=== PATIENT | male | born 1985 | race Hispanic/Latino ===

== ENCOUNTER 2017-06-20 16:34 | Emergency (ER) | payer BC ==
[2017-06-20 16:45] VITALS: BP 116/68; PULSE 107; RESP 19; TEMP 98; O2SAT 96
--- NOTE | 2017-06-20 16:59 | ED PDOC ---
Upper Extremity Pain/Injury Time Seen by Provider: 06/20/17 16:49 Chief Complaint (Nursing): Upper Extremity Problem/Injury Chief Complaint (Provider): Upper Extremity Problem/Injury History Per: Patient History/Exam Limitations: no limitations Onset/Duration Of Symptoms: Sudden Onset (x1) Current Symptoms Are (Timing): Still Present Additional Complaint(s): 32 year old male with medical history of cystic fibrosis, presents to the emergency department with a complaint of right forearm swelling today. Patient had a port-a-cath inserted to right upper chest on 06/10/17 and concerned for blood clots. Denied any pain to right arm. PMD: none provided Past Medical History Reviewed: Historical Data, Nursing Documentation, Vital Signs Vital Signs: Last Vital Signs Temp 98.0 F 06/20/17 16:40 Pulse 107 H 06/20/17 16:40 Resp 19 06/20/17 16:40 BP 116/68 06/20/17 16:40 Pulse Ox 96 06/20/17 16:40 - Medical History PMH: Denies: No Chronic Diseases Other PMH: cystic fibrosis - Surgical History Surgical History: Denies: No Surg Hx - Family History Family History: States: Unknown Family Hx - Social History Current smoker - smoking cessation education provided: No Alcohol: None Drugs: Denies - Allergies Allergies/Adverse Reactions: Allergies Allergy/AdvReac Type Severity Reaction Status Date / Time sulfamethoxazole Allergy ANAPHYLAXIS Verified 06/20/17 16:40 [From Bactrim] trimethoprim [From Bactrim] Allergy ANAPHYLAXIS Verified 06/20/17 16:40 Review of Systems ROS Statement: Except As Marked, All Systems Reviewed And Found Negative Musculoskeletal: Positive for: Other (right forearm swelling). Negative for: Arm Pain (right-sided) Physical Exam - Reviewed Nursing Documentation Reviewed: Yes Vital Signs Reviewed: Yes - Physical Exam Appears: Positive for: Non-toxic, No Acute Distress Extremity: Positive for: Normal ROM (left arm and wrist), Swelling (right forearm). Negative for: Tenderness (right arm or wrist), Deformity Neurologic/Psych: Positive for: Alert (x3), Oriented - ECG O2 Sat by Pulse Oximetry: 96 (RA) Pulse Ox Interpretation: Normal Medical Decision Making Medical Decision Making: Initial Impression: Right forearm swelling Initial Plan: * US duplex upper extremity Time: 1854 US Upper Extremity FINDINGS: Deep veins: Unremarkable. No DVT in the internal jugular, subclavian, axillary, or brachial veins. The veins demonstrate normal color flow, are normally compressible, with normal phasic flow and/or augmentation response. Superficial veins: Unremarkable. No thrombus in the visualized basilic and cephalic veins. Soft tissues: No acute findings. IMPRESSION: There is no DVT Scribe Attestation: Documented by Norma Bell, acting as a scribe for Yady Salas PA-C. Provider Scribe Attestation: All medical record entries made by the Scribe were at my direction and personally dictated by me. I have reviewed the chart and agree that the record accurately reflects my personal performance of the history, physical exam, medical decision making, and the department course for this patient. I have also personally directed, reviewed, and agree with the discharge instructions and disposition. Disposition - Clinical Impression Clinical Impression: Edema of right forearm - Disposition Referrals: Provider CHINO, [Primary Care Provider] - Disposition: Routine/Home Disposition Time: 18:50 Condition: STABLE Instructions: Swelling Forms: [employer] ([place] Citizen)
--- NOTE | 2017-06-20 20:11 | US ---
PROCEDURE: On venous Doppler exam dated 06/20/2017. HISTORY: Swelling COMPARISON: No prior TECHNIQUE: Study available for comparison duplex interrogation of the deep veins of the right upper extremity performed in standard fashion. FINDINGS: The visualized deep veins of the right upper extremity including the right internal jugular vein, subclavian, axillary, brachial basilic, cephalic ulnar and radial veins are patent without evidence of DVT. IMPRESSION: No evidence of DVT.
--- NOTE | 2017-06-21 08:04 | RAD ---
HISTORY: port-a-cath, right chest x 2 weeks COMPARISON: No prior. TECHNIQUE: Chest PA and lateral FINDINGS: Right-sided MediPort in position. LUNGS: Advanced pulmonary fibrosis is appreciate including extensive emphysematous change. No prominent alveolar disease is appreciated on acute bases though it is difficult to evaluate due lack comparison. Underlying infiltrate at the right apex and right perihilar region is not likely but difficult to fully exclude on a limited basis. None is seen the left. PLEURA: No significant pleural effusion identified. No pneumothorax apparent. CARDIOVASCULAR: Normal. OSSEOUS STRUCTURES: No significant abnormalities. VISUALIZED UPPER ABDOMEN: Normal. OTHER FINDINGS: None. IMPRESSION: Extensive COPD. Lack comparison limits evaluation and, accordingly, is difficult to completely exclude an element of limited alveolitis in the right apex and right perihilar region.
== END 2017-06-20 18:55 | disposition home or self-care (01) ==
LOC: H.ER 16:34 → SUPCPDRO 16:34 → H.ER 18:55
DX: R22.31 Localized swelling, mass and lump, right upper limb (principal); E84.9 Cystic fibrosis, unspecified

== ENCOUNTER 2017-07-26 14:00 | Emergency (ER) | payer BC ==
[2017-07-26] MEDS ORDERED: Albuterol-Ipratrop 3 mg / 0.5 (3 ml) UD INH STA (15:07)
--- NOTE | 2017-07-26 15:25 | RAD ---
HISTORY: cough COMPARISON: Chest radiograph dated 06/20/2017 TECHNIQUE: Chest PA and lateral FINDINGS: LUNGS: Diffuse cystic and bronchiectatic changes bilaterally. PLEURA: No significant pleural effusion identified. No pneumothorax apparent. CARDIOVASCULAR: Normal. OSSEOUS STRUCTURES: No significant abnormalities. VISUALIZED UPPER ABDOMEN: Normal. OTHER FINDINGS: Interval malposition of right internal jugular access chest port with catheter tip flipped up into the internal jugular vein. IMPRESSION: Malpositioned right internal jugular access chest port with catheter tip flipped up into the internal jugular vein. Diffuse cystic and bronchiectatic changes bilaterally. Findings conveyed to SAMUEL Ferreira by Dr. Pretty at 3:24 p.m. on 07/26/2017.
[2017-07-26 15:48] LABS: VENOUS BLOOD GAS BASE EXCESS 5.5 mmol/L (0.0-2.0); VENOUS BLOOD GAS PCO2 51 mmHg (40-60); VENOUS BLOOD GAS PO2 38 mm/Hg (30-55)
[2017-07-26] MEDS ORDERED: Sodium Chloride 0.9% 1,000 ML IV STA (15:49)
[2017-07-26] MEDS ORDERED: Albuterol-Ipratrop 3 mg / 0.5 (3 ml) UD ONE (16:08)
[2017-07-26] MEDS ORDERED: levoFLOXacin 500 mg in D5W 500 MG/100 ML BAG IVPB STA (16:30)
--- NOTE | 2017-07-26 16:30 | ED PDOC ---
HPI: General Adult Time Seen by Provider: 07/26/17 14:48 Chief Complaint (Nursing): Chest Pain History Per: Patient Additional Complaint(s): Pt. has a hx of cystic fibrosis. States on Wednesday his chronic cough due to CF worsened and he developed a fever tmax of 100. Reports last night cough became more productive and he developed L sided chest pain present only with coughing. Pt. believes this Past Medical History Reviewed: Historical Data, Nursing Documentation, Vital Signs Vital Signs: Last Vital Signs Temp 98.5 F 07/26/17 20:24 Pulse 98 H 07/26/17 20:24 Resp 22 07/26/17 20:24 BP 120/70 07/26/17 20:24 Pulse Ox 93 L 07/28/17 10:51 - Medical History PMH: Denies: Chronic Kidney Disease Other PMH: cystic fibrosis - Family History Family History: States: No Known Family Hx - Home Medications Home Medications: Ambulatory Orders Medication Instructions Recorded Dornase Davion 1 vial IH Q12 07/26/17 Lipase/Protease/Amylase [Creon Dr 8 cap PO TID 07/26/17 24,000 Units Capsule] Minocycline HCl 100 mg PO Q12 07/26/17 Non-Formulary 1 ml IN Q12 #10 ea 07/26/17 Tobramycin in 0.225% NaCl [Tan 5 ml IH Q12 07/26/17 300 mg/5 ml Solution] predniSONE [predniSONE Tab] 5 mg PO DAILY 07/26/17 - Allergies Allergies/Adverse Reactions: Allergies Allergy/AdvReac Type Severity Reaction Status Date / Time sulfamethoxazole Allergy ANAPHYLAXIS Verified 06/20/17 16:40 [From Bactrim] trimethoprim [From Bactrim] Allergy ANAPHYLAXIS Verified 06/20/17 16:40 Review of Systems ROS Statement: Except As Marked, All Systems Reviewed And Found Negative Cardiovascular: Positive for: Chest Pain Respiratory: Positive for: Cough Physical Exam - Reviewed Nursing Documentation Reviewed: Yes Vital Signs Reviewed: Yes - Physical Exam Appears: Positive for: Well, Non-toxic, No Acute Distress (speaking full sentences) Head Exam: Positive for: ATRAUMATIC, NORMAL INSPECTION, NORMOCEPHALIC Skin: Positive for: Normal Color, Warm. Negative for: Rash Eye Exam: Positive for: EOMI, Normal appearance, PERRL ENT: Positive for: Normal ENT Inspection Neck: Positive for: Normal, Painless ROM Cardiovascular/Chest: Positive for: Regular Rate, Rhythm Respiratory: Positive for: Wheezing (b/l), Other. Negative for: Decreased Breath Sounds, Accessory Muscle Use, Respiratory Distress Gastrointestinal/Abdominal: Positive for: Normal Exam, Soft. Negative for: Tenderness Back: Positive for: Normal Inspection Extremity: Positive for: Normal ROM Neurologic/Psych: Positive for: Alert, Oriented. Negative for: Aphasia, Facial Droop - Laboratory Results Result Diagrams: 07/26/17 15:00 07/26/17 15:00 - ECG ECG: Positive for: Interpreted By Me ECG Rhythm: Positive for: Sinus Tachycardia. Negative for: ST/T Changes Rate: 124 O2 Sat by Pulse Oximetry: 93 - Progress ED Course And Treament: Labs, DuoNeb x 3, solu-medrol 125mg IV, EKG, CXR ordered. Case d/w Dr. Rubin who ag CXR: malpositioning of stevie cath tip; no acute pulmonary changes when compared to CXR done last month as per discussion with Dr. Pretty. On re-evaluation, pt. in no distress. States he is feeling much better. Lungs clear b/l. Case d/w Dr. Hernandez, pt's PMD, who states pt. can be dc'd and he will f/u in her office tomorrow at 1300. Further reports that pt. is normally tachycardic. Also agrees with antibiotic of choice Rocephin and levaquin. States that pt. does not require Rx for it as she will see him tomorrow. Repeat HR: 109; POX: 98% on RA. Disposition - Clinical Impression Clinical Impression: Bronchospasm, Cystic fibrosis, Cough - Patient ED Disposition Is Patient to be Admitted: No - Disposition Disposition: Routine/Home Disposition Time: 18:44 Condition: IMPROVED Additional Instructions: GO TO DR. HERNANDEZ'S OFFICE TOMORROW WITHOUT FAIL RETURN TO ED IMMEDIATELY IF SYMPTOMS WORSEN Prescriptions: Non-Formulary 1 ml IN Q12 #10 ea Instructions: Cystic Fibrosis (DC) Forms: [employer] (Czech) Print Language: FRENCH Addendum Addendum: 07/28/17 10:50 Spoke with patient. Informed of results. States he was able to see her PMD, Dr. Hernandez yesterday and has had slight improvement. No fever. Blood culture results d/w Dr. Hernandez [phone]. States she will contact patient herself and tell him to go to the [facility] ED for admission.
[2017-07-26] MEDS ORDERED: Acetylcysteine 20% Inhal Soln (4ml) INH STA (16:35)
[2017-07-26] MEDS ORDERED: Albuterol 0.083% Inhal Sol (2.5 mg/3 mL) UD INH STA (16:36)
[2017-07-26 16:37] LABS: BASO % 0.3 % (0.0-2.0); EOS % 0.6 % (0.0-4.0); HEMOGLOBIN 10.9 g/dL (12.0-18.0); LYMPH # 0.6 K/uL (1.0-4.3); MEAN CORPUSCULAR HEMOGLOBIN 25.6 pg (27.0-31.0); MEAN CORPUSCULAR HGB CONC 32.8 g/dL (33.0-37.0); MEAN PLATELET VOLUME 7.4 fl (7.2-11.7); MONO # 1.2 K/uL (0.0-0.8); MONO % 13.8 % (0.0-10.0); NEUT # 6.6 K/uL (1.8-7.0); NEUT % 78.3 % (50.0-75.0); PLATELET COUNT 266 K/uL (130-400); RBC 4.26 Mil/uL (4.40-5.90); RED CELL DISTRIBUTION WIDTH 15.5 % (11.5-14.5); WHITE BLOOD COUNT 8.4 K/uL (4.8-10.8)
[2017-07-26 16:43] LABS: ALB/GLOB RATIO 0.8 (1.0-2.1); ALBUMIN 3.3 g/dL (3.5-5.0); ALT/SGPT 34 U/L (21-72); AST/SGOT 33 U/L (17-59); BLOOD UREA NITROGEN 11 mg/dl (9-20); CALCIUM 8.5 mg/dL (8.4-10.2); GFR AFRICAN-AMERICAN > 60; GFR NON-AFRICAN AMERICAN > 60
[2017-07-26] MEDS ORDERED: Albuterol 0.083% Inhal Sol (2.5 mg/3 mL) UD ONE (17:06)
[2017-07-26] MEDS ORDERED: cefTRIAXone (Rocephin) 1 gm Inj ONE (17:07)
[2017-07-26] MEDS ORDERED: Acetylcysteine 20% Inhal Soln (4ml) ONE (17:07)
[2017-07-26] MEDS ORDERED: levoFLOXacin 500 mg in D5W 500 MG/100 ML BAG IVPB ONE (17:07)
[2017-07-26 18:14] LABS: ANISOCYTOSIS SLIGHT; BANDS 4 % (0-2); LYMPHOCYTE 7 % (20-50); MONOCYTE 15 % (0-10); NEUTROPHIL 74 % (42-75); PLATELET ESTIMATE NORMAL (NORMAL); TEARDROP CELLS SLIGHT; TOTAL CELLS COUNTED 100
[2017-07-26 20:26] VITALS: BP 120/70; RESP 22; TEMP 98.5
--- NOTE | 2017-07-27 12:26 | CARD ---
APPROVED REPORT EKG Measurement Heart [id number] <Conclusion> Sinus tachycardia Possible Left atrial enlargement Borderline ECG
[2017-07-28 10:51] VITALS: O2SAT 93
[2017-07-28 20:24] VITALS: PULSE 124
== END 2017-07-26 20:19 | disposition home or self-care (01) ==
LOC: H.ER 14:00
DX: J98.01 Acute bronchospasm (principal); E84.9 Cystic fibrosis, unspecified; B96.89 Other specified bacterial agents as the cause of diseases classified elsewhere
CPT/HCPCS: 71046; 80053; 82803; 84484; 85025; 87040; 87149; 87181; 87205; 87804; 93005; 94640; 96365; 96375; 99284; J0696; J2930; J7040

== ENCOUNTER 2017-12-05 18:49 | Emergency (ER) | payer BC ==
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
[2017-12-05 21:42] LABS: BARBITURATES, UR NEGATIVE (NEGATIVE); BENZODIAZEPINES, UR NEGATIVE (NEGATIVE); OPIATES, UR NEGATIVE (NEGATIVE); PHENCYCLIDINE, UR NEGATIVE (NEGATIVE)
[2017-12-05 22:30] VITALS: BP 119/65; PULSE 75; RESP 18; TEMP 98.1; O2SAT 98
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
--- NOTE | 2017-12-06 08:45 | CARD ---
APPROVED REPORT Date of service: 12/05/2017 EKG Measurement Heart [id number] <Conclusion> Sinus bradycardia with sinus arrhythmia Otherwise normal ECG
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
== END 2017-12-05 22:48 | disposition home or self-care (01) ==
LOC: H.ER 18:49
DX: D32.9 Benign neoplasm of meninges, unspecified (principal); R42 Dizziness and giddiness
CPT/HCPCS: 70450; 73090; 73130; 93005; 99284; G0480